=== PATIENT | female | born 1985 | race Two or more races ===

== ENCOUNTER 2019-02-01 19:25 | Emergency (ER) | payer OTHER ==
[~2019-02-01] VITALS: Ht 152.4 cm; Wt 94.3 kg
[2019-02-01] MEDS ORDERED: SYNTHROID50 MCG (20:27)
[2019-02-02] MEDS ORDERED: AIRBORNE EFFER1 EACH PO (01:01)
[2019-02-02] MEDS ORDERED: OSEL75CA PO (01:01)
[2019-02-02] MEDS ORDERED: PROMETH-CODEIN 65 ML PO (01:01)
[2019-02-02] MEDS ORDERED: MUCINEX DM ER1 EAC1 PO (01:01)
== END 2019-02-02 01:08 | disposition home or self-care (01) ==
LOC: ER 19:25
DX: J11.1 Influenza due to unidentified influenza virus with other respiratory manifestations (principal)

== ENCOUNTER 2023-04-21 14:39 | Emergency (ER) | payer OTHER ==
[~2023-04-21] VITALS: Ht 162.6 cm; Wt 84.4 kg
[~2023-04-21 14:39] MED LIST: AIRBORNE EFFER1 EACH PO; MUCINEX DM ER1 EAC1 PO; OSEL75CA PO; PROMETH-CODEIN 65 ML PO; SYNTHROID50 MCG
== END 2023-04-21 18:38 | disposition home or self-care (01) ==
LOC: ER 14:39
DX: M54.9 Dorsalgia, unspecified (principal); R53.81 Other malaise

== ENCOUNTER 2023-10-21 13:26 | Emergency (ER) | payer OTHER ==
[~2023-10-21] VITALS: Ht 162.6 cm; Wt 86.2 kg
[2023-10-21 17:53] LABS: HEMATOCRIT 38.6 % (36.0-45.00); MEAN CELL VOLUME 84.7 fL (80.00-100.00); MEAN CORPUSCULAR HEMOGLOBIN 28.5 pg (27.00-32.0); MEAN CORPUSCULAR HGB CONC 33.7 g/dl (32.0-36.0); PLATELET COUNT 356 K/uL (150-450); RED BLOOD COUNT 4.56 M/uL (4.00-6.00)
[2023-10-21 18:02] LABS: PH,URINE 6.5 (5.0-8.0); URINE APPEARANCE Clear; URINE BILIRRUBIN Negative (NEGATIVE); URINE BLOOD Negative; URINE COLOR Yellow; URINE GLUCOSE Negative (NEGATIVE); URINE LEUKOCYTE Large; URINE NITRATE Negative; URINE PROTEIN Negative (NEGATIVE); URINE UROBILINOGEN 0.2 E.U./dl
[2023-10-21 18:03] LABS: URINE BACTERIA 1505.5 uL (0.0-1933); URINE EPITHELIAL CELLS 60.1 uL (0.0-38.8); URINE RBC 7.6 uL (0.0-20.8); URINE WBC 217.5 uL (0.0-23.2)
[2023-10-21 18:09] LABS: CALCIUM 9.4 mg/dL (8.5-10.1); CREATININE SERUM 0.8 mg/dL (0.55-1.02); GFR 80.71; POTASSIUM 3.88 mEq/L (3.5-5.1)
== END 2023-10-21 18:53 | disposition home or self-care (01) ==
LOC: ER 13:26
PROVIDERS: General Practice
DX: N39.0 Urinary tract infection, site not specified (principal)

== ENCOUNTER 2023-11-09 23:52 | Emergency (ER) | payer OTHER ==
[~2023-11-09] VITALS: Ht 162.6 cm; Wt 86.2 kg
[2023-11-10] MEDS ORDERED: SYNTHROID75 MCG PO (00:30)
[2023-11-10 01:40] LABS: HEMATOCRIT 35.9 % (36.0-45.00); HEMOGLOBIN 12.3 g/dL (12.0-15.00); MEAN CELL VOLUME 85.8 fL (80.00-100.00); MEAN CORPUSCULAR HEMOGLOBIN 29.5 pg (27.00-32.0); MEAN CORPUSCULAR HGB CONC 34.3 g/dl (32.0-36.0); PLATELET COUNT 365 K/uL (150-450); RED BLOOD COUNT 4.18 M/uL (4.00-6.00); RED CELL DISTRIBUTION WIDTH 13.8 % (11.5-14.5)
[2023-11-10 02:03] LABS: ALBUMIN 3.4 gm/dL (3.4-5.0); ALKALINE PHOSPHATASE 62 U/L (50-136); ALT/SGPT 14 U/L (12-78); ANION GAP 9 (10.0-20.0); AST/SGOT 7 U/L (15-37); BILIRUBIN TOTAL 0.15 mg/dL (0.3-1.2); BLOOD UREA NITROGEN 11 mg/dL (7-18); BUN CREA RATIO 16 (7.0-25.0); CALCIUM 9.1 mg/dL (8.5-10.1); CARBON DIOXIDE 30 mEq/L (21-32); CHLORIDE 104 mmol/L (98-107); CREATININE SERUM 0.68 mg/dL (0.55-1.02); GFR 97.36; GLOBULINA 4.1 G/DL (2.4-3.5); GLUCOSE FASTING 112 mg/dL (65-100); OSMOLALITY SERUM 278 MOSM/KG (275-295); POTASSIUM 4.11 mEq/L (3.5-5.1); SODIUM 139 mmol/L (136-145); TOTAL PROTEIN 7.5 gm/dL (6.4-8.2)
[2023-11-10 02:16] LABS: HCG QUANTITATIVE < 1 mUI/mL (1-3)
[2023-11-10 03:08] LABS: URINE APPEARANCE Clear; URINE BILIRRUBIN Negative (NEGATIVE); URINE BLOOD Negative; URINE COLOR Yellow; URINE GLUCOSE Negative (NEGATIVE); URINE LEUKOCYTE Negative; URINE NITRATE Negative; URINE PROTEIN Negative (NEGATIVE); URINE UROBILINOGEN 0.2 E.U./dl
[2023-11-10 03:12] LABS: URINE EPITHELIAL CELLS 12.5 uL (0.0-38.8); URINE RBC 3.3 uL (0.0-20.8)
== END 2023-11-10 10:41 | disposition home or self-care (01) ==
LOC: ER 23:53
PROVIDERS: General Practice
DX: R10.2 Pelvic and perineal pain (principal); K63.89 Other specified diseases of intestine